=== PATIENT | male | born 1965 | race Caucasian/White ===

== ENCOUNTER 2023-07-10 17:11 | Emergency (ER) | payer BC, SELFPAY ==
[2023-07-10 17:15] VITALS: BP 138/77; PULSE 84; RESP 19; TEMP 36.8; O2SAT 99; BMI 18.3
--- NOTE | 2023-07-10 17:30 | EXP.UTC ---
Discharge Plan Disposition Patient Disposition: Home, Self-Care Condition: Good Prescriptions Prescriptions: New amoxicillin [amoxicillin] 875 mg tablet 875 mg PO Q12H Qty: 20 0RF meclizine 25 mg tablet 25 mg PO TID PRN (Reason: dizziness) Qty: 20 0RF methylprednisolone 4 mg Tablets,Dose Pack 4 mg PO DIRECTED Qty: 21 0RF Referrals Follow up/Referrals: Provider,Referral, MD [Primary Care Provider] - See instructions Activity Restrictions/Add. Instructions Additional Instructions/Restrictions: Drink plenty of fluids. Take tylenol or ibuprofen for pain or fever. Take the medications as directed. Follow up with your regular doctor. GO TO THE ER FOR ANY WORSENING SYMPTOMS The meclizine (antivert) medication is for dizziness. It will make you drowsy, so don't drive or operate heavy machinery after taking it. Clinical Impressions Clinical Impression: Otitis media, Sinusitis, Benign paroxysmal positional vertigo Instructions Patient Instructions: Sinusitis, Middle Ear Infection, DI for Sinusitis, DI for Vertigo, Meclizine Discharge ED Provider: Arnold Ray [facility] General Stated complaint: dizzy, itchy eyes Time Seen by Provider: 07/10/23 17:30 History of Present Illness Provider Complaint: He states that for the past 5 days he has had sinus congestion, bilateral ear pressure, intermittent dizziness, and itchy eyes. Related Data Previous Rx's Medication Instructions Recorded amoxicillin 875 mg tablet 875 mg PO Q12H #20 tabs 07/10/23 meclizine 25 mg tablet 25 mg PO TID PRN dizziness #20 tabs 07/10/23 methylprednisolone 4 mg tablets in 4 mg PO DIRECTED #21 tabs 07/10/23 a dose pack Allergies Allergy/AdvReac Type Severity Reaction Status Date / Time ciprofloxacin [From Cipro] Allergy Verified 07/10/23 17:34 sulfamethoxazole Allergy Verified 07/10/23 17:34 [From Bactrim] trimethoprim [From Bactrim] Allergy Verified 07/10/23 17:34 [facility] Disclaimer: The information contained in this section may have been updated after the patient was seen, as this information can be updated by other users. Social History Smoking Status: Never smoker alcohol intake: never current occupational status: employed Travel in the last 8 weeks: None ROS Obtained: Yes All systems reviewed & no additional complaints except as documented Constitutional Constitutional: Denies chills, Reports fever(s) and Reports poor appetite Eyes Eyes: Denies eye discharge ENT Ears, Nose, Mouth, and Throat: Denies ear discharge, Reports otalgia, Denies hearing loss, Denies sinus pain and Reports sore throat Cardiovascular Cardiovascular: Denies chest pain and Denies dyspnea Respiratory Respiratory: Denies chest congestion, Reports cough and Denies dyspnea Gastrointestinal Gastrointestingal: Denies abdominal pain, diarrhea, nausea or vomiting Musculoskeletal Musculoskeletal: Denies arthralgias Integumentary/Breasts Skin/Breast: Denies rash Physical Exam General General appearance: alert and in no apparent distress Head Head exam: atraumatic, normocephalic and normal inspection Eye Eye exam: Present normal appearance; Absent PERRL or EOMI ENT ENT exam: Present mucous membranes moist and normal external ear exam Expanded ENT Exam TM/Canal exam: Bilateral TM: erythema, bulging and effusion Nose exam: Absent sinus tenderness Nasal speculum exam: Bilateral: normal Mouth exam: Present normal external inspection and other; Absent drooling Teeth exam: Present normal inspection Throat exam: Present tonsillar erythema and tonsillomegaly Neck Neck exam: Present normal inspection, full ROM and trachea midline; Absent tenderness, meningismus or lymphadenopathy Chest Chest inspection: Present normal inspection and symmetric chest wall rise; Absent tenderness Respiratory Respiratory exam: Present normal lung sounds bilaterally; Absent respiratory distress, wheezes or stridor Cardiovasc
[2023-07-10 18:16] VITALS: BP 138/77; PULSE 84; RESP 19; TEMP 36.8; O2SAT 99
== END 2023-07-10 18:16 | disposition home or self-care (01) ==
PROVIDERS: Emergency Provider Nurse Practitioner Family
DX: H66.93 Otitis media, unspecified, bilateral (principal); J01.90 Acute sinusitis, unspecified; H81.10 Benign paroxysmal vertigo, unspecified ear
CPT/HCPCS: 99204; 99212; G0463